=== PATIENT | female | born 1950 | race Two or more races ===

== ENCOUNTER 2020-01-25 06:45 | Outpatient (CLI) | payer OTHER | END 2020-01-25 06:55 | disposition home or self-care (01) | LOC: LAB 06:45 | DX: G30.1 Alzheimer's disease with late onset (principal); A64 Unspecified sexually transmitted disease; E03.3 Postinfectious hypothyroidism; E53.8 Deficiency of other specified B group vitamins; E72.20 Disorder of urea cycle metabolism, unspecified ==

== ENCOUNTER 2020-01-25 07:27 | Outpatient (CLI) | payer OTHER | END 2020-01-25 08:30 | disposition home or self-care (01) | LOC: MRI 07:27 | DX: G30.1 Alzheimer's disease with late onset (principal) | CPT/HCPCS: 70551 ==